=== PATIENT | female | born 1990 | race Hispanic/Latino ===

== ENCOUNTER 2022-04-11 05:40 | Day surgery (SDC) | payer BC ==
[2022-04-10 15:01] VITALS: BP 143/84
[2022-04-10 15:24] LABS: BASOPHILS % (AUTO) 0.7 % (0.0-5.0); EOSINOPHILS % (AUTO) 2.3 % (0.0-8.0); HEMATOCRIT 35.6 % (36-48); LYMPHOCYTES % (AUTO) 26.9 % (21.0-51.0); MEAN CORPUSCULAR HEMOGLOBIN 24.5 pg (27.0-33.0); MEAN CORPUSCULAR HGB CONC 31.5 g/dL (32.0-36.0); MEAN CORPUSCULAR VOLUME 77.7 fL (79-99); MONOCYTES % (AUTO) 7.9 % (3.0-13.0); NEUTROPHILS % (AUTO) 61.7 % (40.0-77.0); PLATELET COUNT (AUTO) 345 K/uL (130-400); RED BLOOD CELL COUNT(AUTO) 4.58 MIL/uL (4.00-5.50); RED CELL DISTRIBUTION WIDTH 15.3 % (11.0-15.5); WHITE BLOOD COUNT (AUTO) 12.4 K/uL (4.8-10.8)
[~2022-04-11] VITALS: Ht 152.4 cm; Wt 82.6 kg
[2022-04-11] VITALS (18 sets, daily range): BP systolic 109–137; BP diastolic 61–84
[~2022-04-11 05:40] MED LIST: CHOL500045 PO; LORA10TA60 PO; PROG200C11 PO; ZINC PO
[2022-04-11] MEDS ORDERED: CEFAZOLIN SODIUM 1 GM VIAL ONE (05:44)
[2022-04-11] MEDS ORDERED: LACTATED RINGERS 1000ML 1,000 ML IV ONE (05:44)
[2022-04-11] MEDS ORDERED: ASCO100031 PO (06:18)
[2022-04-11] MEDS ORDERED: PROPOFOL 10 MG/ML 20ML VIAL IV ONE (06:51)
[2022-04-11] MEDS ORDERED: GLYCOPYRROLATE 1 MG/5 ML SYRINGE ONE (06:51)
[2022-04-11] MEDS ORDERED: FENTANYL CITRATE PF 50 MCG/1 ML 2ML VIAL ONE (06:52)
[2022-04-11] MEDS ORDERED: ROCURONIUM 10MG/1ML SYR 10 MG/ML ML ONE (06:52)
[2022-04-11] MEDS ORDERED: FAMOTIDINE 20MG VIAL IV ONE (07:01)
[2022-04-11] MEDS ORDERED: CEFAZOLIN SODIUM 2 GM VIAL IV ONE (07:03)
[2022-04-11] MEDS ORDERED: ONDANSETRON 4MG INJ ONE ×2 (07:19→07:59)
[2022-04-11] MEDS ORDERED: NEOSTIGMINE 5MG/5ML SYR IV ONE (07:30)
[2022-04-11] MEDS ORDERED: MEPERIDINE-PF 25 MG/ML SYG ONE ×2 (07:34→08:00)
[2022-04-11] MEDS ORDERED: CEFAZOLIN SODIUM 1 GM VIAL IVP ONE (08:00)
[2022-04-11] MEDS ORDERED: CALDOLOR 800MG+NS 250ML 250 ML IV ONE ×2 (08:09→10:00)
== END 2022-04-11 09:45 | disposition home or self-care (01) ==
LOC: DAH 05:40
PROVIDERS: ATTEND Obstetrics & Gynecology
DX: N92.1 Excessive and frequent menstruation with irregular cycle (principal); N84.0 Polyp of corpus uteri; K21.9 Gastro-esophageal reflux disease without esophagitis; Z98.890 Other specified postprocedural states; Z80.3 Family history of malignant neoplasm of breast; Z82.49 Family history of ischemic heart disease and other diseases of the circulatory system; Z83.3 Family history of diabetes mellitus
CPT/HCPCS: 84703; 85025; 86850; 86900; 86901; 87426; 36415; 58558; A4663; J7030 ×2; J0690 ×2; J7120; J3490 ×2; J3010; J2710; J2704; J2405 ×2; J2175 ×2; J1741 ×2; A4351; A4215; A4223; A4222; A4221; A4335

== ENCOUNTER → 2025-04-02 | Outpatient (CLI) | payer BC ==
[~2025-04-02] MED LIST changes: +ASCO10004 PO; +IOHEXOL 350 MG/ML 100ML INFUS..BTL IV ONE
--- NOTE | 2025-04-03 15:35 | HMCIMG ---
EXAMINATION : CT Abdomen and Pelvis without and with contrast. CLINICAL HISTORY: Intra-abdominal and pelvic swelling, mass and lump. TECHNIQUE: Multiple contiguous axial CT images were obtained through the abdomen and pelvis following the administration of intravenous contrast. Coronal and sagittal reconstructions were also obtained. COMPARISON: None. FINDINGS: Included chest is within normal limits. The liver is normal in caliber with uniform decreased density. There is a peripherally enhancing isodense lesion in segment measuring 1.0 x 1.2 cm. The gallbladder, spleen, pancreas, adrenal glands and kidneys appear within normal limits. Bowel loops are normal in caliber without evidence of obstruction, ileus, or obvious bowel wall thickening. Small umbilical hernia. Urinary bladder is well distended with normal wall thickening. Uterus is enlarged in caliber due to fundal and posterior intramural fibroid measuring 7.5 x 10.3 cm causing mass effect on the endometrium. Both ovaries are normal. There is no ascites or lymphadenopathy. The opacified abdominal and pelvic vessels are patent. There are atheromatous wall calcification of the aorta and iliac arteries. No acute or suspicious osseous abnormality. There are multilevel mild degenerative spondylotic changes of the spine. IMPRESSION: Hepatic hemangioma. Enlarged, fibroid uterus. No acute abdominal pelvic pathology. /[place]
== END | disposition home or self-care (01) ==
LOC: RAH 08:52
PROVIDERS: ATTEND Nurse Practitioner Adult Health
DX: D18.03 Hemangioma of intra-abdominal structures (principal); D25.1 Intramural leiomyoma of uterus; K42.9 Umbilical hernia without obstruction or gangrene; I70.0 Atherosclerosis of aorta; R19.00 Intra-abdominal and pelvic swelling, mass and lump, unspecified site; M47.817 Spondylosis without myelopathy or radiculopathy, lumbosacral region; Z85.89 Personal history of malignant neoplasm of other organs and systems
CPT/HCPCS: 74178; Q9967